=== PATIENT | female | born 1960 | race Caucasian/White ===

== ENCOUNTER 2020-11-11 15:43 | Emergency (ER) | payer OTHER ==
[2020-11-11 17:51] LABS: HEMOGLOBIN 9.7 gm/dl (12.3-15.3); RED BLOOD COUNT 5.09 M/UL (4.00-5.10); WHITE BLOOD COUNT 7.9 K/UL (4.5-11.0)
[2020-11-11 22:41] LABS: BUN/CREATININE RATIO 9 (0-10)
== END 2020-11-11 21:39 | disposition home or self-care (01) ==
LOC: ER1 15:43
PROVIDERS: Preventive Medicine Occupational Medicine
DX: U07.1 COVID-19 (principal); I10 Essential (primary) hypertension; Z87.891 Personal history of nicotine dependence
CPT/HCPCS: 0240U; 71045; 80053; 81001; 82550; 82553; 83874; 84484; 85025; 85652; 86140; 87086; 93005; 96374; 99285; J2060; J7030